=== PATIENT | female | born 1960 | race Caucasian/White ===

== ENCOUNTER 2021-10-30 14:28 | Outpatient (CLI) | payer BC, SELFPAY ==
--- OUTSIDE RECORDS SUMMARY | 2021-09-29 09:29 | XMS_ITS | Continuity of Care Document ---
:1960 Author Care Team Providers Name Role Phone PRESTON Panda Attending Physician MD Savi Maher Primary Care Physician Allergies, Adverse Reactions, Alerts Allergen Type Severity Reaction Last Updated Verified Status Dust Allergy Mild Congestion, May Yes Active cough, 2021 sneezing Lisinopril Allergy Mild rash May Yes Active 2021 Dust mites Allergy Mild Congestion, May Yes Active cough, 2021 sneezing Social History Smoking Status Status Start Date End Date Date of Observat ion Never smoked tobacco April 9:36am (finding) Observation Status Observation Response Date of Response History provided by Patient December 01, 2018 4: 02pm Where do you live? Own home/apt December 01, 2018 4: 02pm With whom do you live? Spouse December 01, 2018 4:02pm Specify additional service THERAPY WORKING WITH December 01, 2018 4:02pm needs PATIENT Additional Data Assigned Sex Female Problems Active Problems Medical Problem Onset Date Status Pain, joint, shoulder May 21, 2008 Active Hypertension August 08, 2012 Active Breast atypical hyperplasia October 25, 2009 Resolved Herpes zoster February 20, 2012 Resolved Hyperlipidemia December 23, 2013 Active Pre-diabetes Active FH: vasuclar disease Active Status post total knee Active replacement, left Hx of colonoscopy December 18, 2019 Active History of cholecystectomy Active Inactive/Resolved Problems Medical Problem Onset Date Status Encounter for screening Resolved laboratory testing for COVID-19 virus Annual physical exam Resolved Medications Medication Status Dose Units Route Directions Qty Days Start End Ins tructions Date Date Aspirin Active 81 MG PO Twice A Day November [facility] for deep vein clot prevention post surgery. Take , twice daily. 2018 4:48pm Atorvastatin Active 20 MG PO Bedtime August Calcium 2021 9:40am Fluticasone Active 2 SPRAY EACH Daily 08 November Propionate NOSTR , (Nasal) 2019 2:44pm Hctz/Losartan Active 1 TAB PO Daily January Potassium , (Losartan/Hct 2020 z) 100 1:16pm Mg/12.5 Mg TAB Levonorgestre Active 1 EACH IU Once 1 l (Mirena) 20 Mcg/24 Hr IUD Melatonin Active 10 MG PO Bedtime as 100 needed Metformin Hcl Active 1000 MG PO Daily August Take 2 (Metformin , tablets o nce Hcl Er) 500 2021 daily Mg TABCR 11:27am Acetaminophen Disconti 1 - 2 TAB PO Q4-6H Prn November ua /Hydrocodone nued , ry Bitart 2010, (Hydrocodone- 1:15pm 2011 Acetaminophen 3:06pm ) 5 Mg/500 Mg TAB Amlodipine Disconti 10 MG PO Daily August Besylate nued y , 2013 2:42pm 9:21am Amlodipine Disconti 10 MG PO Daily August Besylate nued , ry 2012, 1:56pm 2013 2:38pm Amlodipine Disconti 10 MG PO Daily August Besylate nued r , 2011 8:46am 1:56pm Amoxicillin Disconti 1000 MG PO Three Times August nued A Day 2009 11:57am 4:03pm Amoxicillin & Disconti 1 TABLET PO Twice Daily 19 August Au curry Pot nued For 7 Days , Clavulanate 2016 2016 (Augmentin) 12:07pm 8:10am 875 Mg/125 Mg TAB Aspirin Disconti 81 MG PO Daily November 9:01am Aspirin Disconti 1 TABLET PO Daily June 4:58pm Atorvastatin Disconti 20 MG PO Bedtime June Calcium nued 2021 2:21pm 9:40am Atorvastatin Disconti 20 MG PO Bedtime September Calcium nued 2020 1:39pm 2:21pm Atorvastatin Disconti 20 MG PO Bedtime June Calcium nued 2020 12:17pm 1:39pm Atorvastatin Disconti 20 MG PO Bedtime April Calcium nued , 2020 10:52am 12:17p m Atorvastatin Disconti 10 MG PO Bedtime 90 Novem Januar Calcium nued r , 2019, 9:53am 2020 10:52a m Atorvastatin Disconti 10 MG PO Bedtime 90 Sept Novemb Calcium nued er er 2019 9:43am 9:53am Azithromycin Disconti 250-5 MG PO Daily July 500 mg x 1 nued , , day then 250 2015 2015 mg daily x 4 11:16am 8:04am days Azithromycin Disconti 250 MG PO As Directed y 2 TABS ON DAY (Zithromax nu y , , , EN 1 Z-Alen) 250 Mg 2011 2011 TAB DA SHERON TAB 3:17pm 8:49am DAYS 2-5. Azithromycin Disconti 250 MG PO As Directed June 2 TABS ON DAY (Zithromax nued , , , THEN 1 Z-Alen) 250 Mg 2011 2011 TAB DA SHERON TAB 11:10am 8:49am DAYS 2-5. Azithromycin Disconti 0 PO Daily January T ABELARDO 500 MG (2 TABLETS) BY MOUTH TODAY, THEN 250 MG (1 TABLET) BY (Zithromax) nued MOUTH ON CE DAILY FOR 4 MORE DAYS. 250 Mg TAB 2010, 3:24pm 2011 3:06pm Azithromycin Disconti 0 PO Daily October TAKE 500 MG (2 TABLETS) BY MOUTH TODAY, THEN 250 MG (1 TABLET) BY (Zithromax) nued , MOUTH ON CE DAILY FOR 4 MORE DAYS. 250 Mg TAB 2009 2009 12:37pm 2:01pm Benzonatate Disconti 100 MG PO Three Times August t (Tessalon nued A Day as , ) 100 needed 2015 2016 Mg CAP 9:49am 8:08am Calcium/Vitam Disconti 1 EA PO Februa in D nued ry 2011 3:06pm Ceftriaxone Disconti 1 GM IM Once August Sodium nued , , (Rocephin) 2016 Gm INJ 12:05pm 12:21p m Celecoxib Disconti 200 MG PO Twice A Day Novemberobe nued 26, r 4th, 2018 2018 4:48pm 11:42a m Cephalexin Disconti 500 MG PO Three Times 26 November Septe m nued A Day 28, xochitl 2014 03, 3:39pm 2013 2:48pm Covid-19 Disconti 30 MCG IM Once July (Sars-Cov-2) nued , Mrna Vir 2021 2021 (Pfizer-Biont 12:37pm 4:25pm ech Covid-19) 30 Mcg/0.3 Ml INJ Covid-19 Disconti 30 MCG IM Once Decemb Dece (Sars-Cov-2) nued r , er Mrna Vir 2020, (Pfizer-Biont 1:39pm 2020 ech Covid-19) 1:44pm 30 Mcg/0.3 Ml INJ Diphtheria/Te Disconti 0.5 ML IM Once November tanus/Acell nued , 3rd, Pertussis 2014 2014 (Adacel) 0.5 8:17am 8:57am Ml INJ Eletriptan Disconti 20 MG PO As Needed Novemb Hydrobromide nued er (Relpax) 20 4th, Mg TAB 2008 4:09pm Fish Oil Disconti 1000 MG PO Daily Februa nued ry 2013 2:19pm Fluticasone Disconti 2 SPRAY EACH Daily November Propionate nued NOSTR 4th, er (Fluticasone 2015 09, Propionate 11:34am 2016 (Nasal)) 50 3:32pm Mcg/1 [place] INH Fluticasone Disconti 2 SPRAY EACH Daily November USE 2 SPRAYS Propionate nued NOSTR 16, 18th, IN EACH (Flonase) 50 2009 2010 NOSTRIL ONCE Mcg/1 [place] 3:15pm 2:02pm DAILY MISTI Fluticasone Disconti 2 SPRAY EACH Daily August USE 2 SPRAYS Propionate nued NOSTR , 16th, IN EACH (Flonase) 50 2009 2009 NOSTRIL ONCE Mcg/1 [place] 11:57am 3:15pm DAILY MISTI Fluticasone Disconti 2 SPRAY EACH Daily August USE 2 SPRAYS Propionate nued NOSTR y , , IN EACH (Flonase) 50 2008 2009 NOSTRIL ONCE Mcg/1 [place] 11:54am 2:52pm DAILY MISTI Fluticasone Disconti 2 SPRAY EACH Daily June Propionate nued NOSTR , , (Nasal) 2018 2019 3:10pm 2:44pm Fluticasone Disconti 2 SPRAY EACH Daily June Propionate nued NOSTR r , , (Nasal) 2016 2018 3:32pm 3:10pm Fluticasone Disconti 2 SPRAY EACH Daily November Propionate nued NOSTR r 17, , (Nasal) 2014 2015 (Flonase 5:03pm 11:34a Allergy m Relief) 50 Mcg/Act SPR Fluticasone Disconti 2 SPRAY EACH Daily January Propionate nued NOSTR , , (Nasal) 2014 2015 (Flonase 6:21pm 9:16am Allergy Relief) 50 Mcg/Act SPR Glucosamine-C Disconti 1 CAP PO Novemb hondroitin nued er (Joint 4th, Support) 2008 Cap CAP 4:09pm Guaifenesin-C Disconti 5 ML PO Every 4 August odeine nued Hours as 31, , (Cheratussin needed 2015 2015 Ac) 100 Mg/10 9:49am 8:08am Mg/5 Ml SOLN Hctz/Losartan Disconti 1 TAB PO Daily November Potassium nued , y (Losartan/Hct 2021 03, z) 50 Mg/12.5 12:39pm 2021 Mg TAB 8:50am Hctz/Losartan Disconti 1 TAB PO Daily November Potassium nued er , , (Losartan/Hct 2019 2020 z) 50 Mg/12.5 4:27pm 12:39p Mg TAB m Hydrochloroth Disconti 50 MG PO Daily August iazide nued y , , 2013 2013 2:42pm 9:21am Hydrochloroth Disconti 25 MG PO Daily August iazide nued , 2012, 1:56pm 2013 2:42pm Influenza Disconti 0.5 ML IM Once Januaryobe Virus Vac nued 29th, r Recomb Hem 2019, (Flublok 9:28am 2020 Quadrivalent 9:32am 2019 0.5 Ml) 1 Inj INJ Influenza Disconti 0.5 ML IM Once Januaryobe Virus Vacc nued 8th, r 8th, Triv Types 2009 2009 A&B (Fluarix 3:48pm 3:51pm ) 0.5 Ml INJ Influenza Disconti 0.5 ML IM Once 1 Februar Februa Virus Vacc nued y 4th, ry Triv Types 2008 4th, A&B (Fluarix) 11:36am 2008 0.5 Ml INJ 4:29pm Influenza Disconti 0.5 ML IM Once Januaryobe Virus Vaccine nued , r (Fluzone 2018 02, Quadrivalent 1:54pm 2017 (3 Yrs And 1:58pm Older)2017- ) 1 Inj INJ Influenza Disconti 0.5 ML IM Once Januaryobe Virus Vaccine nued 8th, r 8th, Split 2020 2020 (Fluzone 1:26pm 1:37pm Quadrivalent 2020 0.5 Ml) 1 Inj INJ Influenza Disconti 0.5 ML IM Once Januaryobe Virus Vaccine nued , r Split 2018, (Fluzone 6:04pm 2018 Quadrivalent 6:08pm 2018 0.5 Ml) 1 Inj INJ Influenza Disconti 0.5 ML IM Once Januaryobe Virus Vaccine nued th, r Split 2012, (Fluzone (3 9:04am 2012 Years And 9:20am Older) [id number]) 1 Ml INJ Influenza Disconti 0.5 ML IM Once Decem Virus Vaccine nued er xochitl Split , , (Fluzone Pf 2011 2011 [id number] 11:06am 11:11a (0.5 Ml)) 0.5 m Ml INJ Influenza Disconti 0.5 ML IM Once b Virus Vaccine nued r , er Types 2014 03, (Fluvirin 7:05pm 2013 2013- (4 7:06pm Yrs And Up, Pf-Syringe)) 1 Inj INJ Ketorolac Disconti 60 MG IM Once June Tromethamine nued 2013 2:56pm 2:58pm Levonorgestre Disconti 1 EA IU Once 1 Decem l (Mirena) 20 nued er xochitl Mcg/24 Hr IUD , 2015 9:03am 10:04a m Losartan Disconti 50 MG PO Daily Julyem Potassium nued , xochitl 2019 05, 11:31am 2019 4:27pm Losartan Disconti 50 MG PO Daily 90 July Potassium nued y , 2019 3:56pm 11:31a m Losartan Disconti 50 MG PO Daily 90 ua Potassium nued r 2nd, ry 2018, 10:06am 2019 3:56pm Losartan Disconti 50 MG PO Daily mb Potassium nued er er , 2018 2:34pm 10:06a m Losartan Disconti 50 MG PO Daily Potassium nued r 16th, xochitl 2017, 4:06pm 2018 2:34pm Losartan Disconti 50 MG PO Daily January Potassium nued 11th, er 2017, 9:59am 2017 4:06pm Losartan Disconti 50 MG PO Daily Novemberobe Potassium nued 7th, r 2018 02, 8:37am 2017 9:59am Metformin Hcl Disconti 1000 MG PO Daily 180 August T abelardo 2 (Metformin nued y , , tablets once Hcl Er) 500 2021 2021 daily Mg TABCR 12:23pm 11:27a m Metformin Hcl Disconti 1000 MG PO Daily 180 Take 2 (Metformin nued r , ry tablets once Hcl Er) 500 2020, daily Mg TABCR 11:51am 2021 12:23p m Metformin Hcl Disconti 1000 MG PO Daily 180 Apruar take 2 (Metformin nued er y tablets o nce Hcl Er) 500 , , daily Mg TABCR 2020 2021 12:01pm 8:50am Metformin Hcl Disconti 1000 MG PO Daily 180 Apruar Take 2 (Metformin nued r 6th, y tablets once Hcl Er) 500 2021 03, daily Mg TABCR 11:45am 2021 8:50am Metformin Hcl Disconti 1000 MG PO Daily Julyem ta ke 2 (Metformin nued , xochitl tablets o nce Hcl Er) 500 2020, daily Mg TABCR 12:51pm 2020 12:01p m Metformin Hcl Disconti 1000 MG PO Daily July t abelardo 2 (Metformin nued y , , tablets once Hcl Er) 500 2020 2020 daily Mg TABCR 2:34pm 12:51p m Metformin Hcl Disconti 1000 MG PO Daily Aprilua take 2 (Metformin nued , ry tablets o nce Hcl Er) 500 2020, daily Mg TABCR 10:52am 2020 2:34pm Metformin Hcl Disconti 500 MG PO Twice Daily January J libra nued With Meals 2019, 8:34am 2020 10:52a m Metformin Hcl Disconti 500 MG PO Twice Daily 180 O ctobe nued With Meals er , r 2019, 4:29pm 2019 8:34am Misoprostol Disconti 400 MCG OR Once 2 Ta ke 400 mcg (Cytotec) 200 nued er , xochitl by m jacque on Mcg TAB 2015, the evening 11:08am 2015 prior to 8:55am procedure. Multiple Disconti 1 EA PO August Vitamin nued 3rd, (Multi-Vitami 2012 n) TAB 1:40pm Multiple Disconti 1 EA PO August Vitamin nued 6th, (Multi-Vitami 2009 n) TAB 10:23a m Ondansetron Disconti 4 MG PO Every 6 June Hcl nued Hours , (Ondansetron 2013 2013 Odt) 4 Mg TAB 2:36pm 2:38pm Osteobiflex Disconti Daily Februa nued ry 2011 3:06pm Oxycodone Hcl Disconti 2.5-5 MG PO Every 4-6 40 Mar Take as needed for pain: 2.5 mg mild-moderate pain, 5 mg nued Hours as er er severe pain . needed 2018 9:35am 1:42pm Oxycodone Hcl Disconti 2.5-5 MG PO Every 4-6 November em Take as needed for pain: 2.5 mg mild-moderate pain, 5 mg nued Hours as severe pain . needed 2018, 4:48pm 2018 9:35am Potassium Disconti 10 MEQ PO Daily August Chloride nued y , 2013 9:57am 9:21am Progesterone Disconti 100 MG PO Daily July (Prometrium) nued , 100 Mg CAP 2010 2010 2:51pm 7:33am Psyllium Disconti 2.6 GM PO Daily as Septem TAKE S 5 (Metamucil) nued needed xochitl CAPSULE S 0.52 Gm CAP 2013 2:11pm Senna/Docusat Disconti 1 TAB PO Twice A Day 60 Septemb O ctobe Hold if e Sodium nued as needed er 6th, r 4th, expe riencing (Senna S) 8.6 2018 2018 loose stools Mg/50 Mg TAB 9:27am 11:42a m Senna/Docusat Disconti 1 TAB PO Twice A Day November Se ptem Hold if e Sodium nued , xochitl experiencin g (Senna S) 8.6 2018 09, loose stools Mg/50 Mg TAB 4:48pm 2018 9:27am Specialty Disconti 1 EA PO Decemb Vitamins nued er Products , (Centrum 2012 Performance) 8:11am TAB Triamcinolone Disconti 1 FCO TOP Twice A Day July ust Acetonide nued , (Triamcinolon 2014 2014 e Acetonide 11:16am 8:04am (Cream)) 0.1 % CRE Valacyclovir Disconti 1000 MG PO Three Times cemb Hcl (Valtrex) nued A Day r , er 1,000 Mg TAB 2012 02, 9:55am 2011 8:11am Valsartan Disconti 320 MG PO Daily November (Diovan) 320 nued , , Mg TAB 2016 2017 8:30am 9:03am Valsartan Disconti 320 MG PO Daily October (Diovan) 320 nued , 30, Mg TAB 2016 2016 10:16am 8:30am Valsartan Disconti 320 MG PO Daily November (Diovan) 320 nued , , Mg TAB 2015 2016 8:29am 10:16a m Valsartan Disconti 320 MG PO Daily 30 [place]athy [place] Pt due for (Diovan) 320 nued 17th, 9th, medicat ion Mg TAB 2015 2015 follow up in 7:52am 8:29am [place] Valsartan Disconti 320 MG PO Daily July (Diovan) 320 nued , 17, Mg TAB 2015 2015 10:55am 7:52am Valsartan Disconti 320 MG PO Daily July (Diovan) 320 nued r , , Mg TAB 2014 2015 10:43am 10:55a m Valsartan Disconti 320 MG PO Daily October (Diovan) 320 nued 6th, er Mg TAB 2014 11, 7:59am 2014 10:43a m Valsartan Disconti 320 MG PO Daily October (Diovan) 320 nued y , 6th, Mg TAB 2014 2014 4:38pm 7:59am Valsartan Disconti 320 MG PO Daily August (Diovan) 320 nued , ry Mg TAB 2013, 9:21am 2014 4:38pm Valsartan Disconti 320 MG PO Daily August Pleas e fill (Diovan) 320 nued r th, 3rd, gener ic Mg TAB 2011 2012 4:57pm 1:40pm Valsartan Disconti 320 MG PO Daily September (Diovan) 320 nued 26th, er Mg TAB 2011, 4:25pm 2011 4:57pm Valsartan Disconti 320 MG PO Daily October (Diovan) 320 nued , th, Mg TAB 2010 2011 1:13pm 4:25pm Valsartan Disconti 320 MG PO Daily August (Diovan) 320 nued 6th, 1st, Mg TAB 2009 2010 10:41am 1:13pm Valsartan-Hyd Disconti 1 TAB PO Daily June rochlorothiaz nued , 6th, jamal (Lisette 2008 2009 Hct) 320 9:21am 10:41a Mg/25 Mg TAB m Valsartan-Hyd Disconti 1 TAB PO Daily 05 July rochlorothiaz nued , jamal (Lisette 2008 Hct) 320 9:21am Mg/25 Mg TAB Zoster Disconti 50 MCG IM Once 1 [facility] Vaccine nued r , er Recombinant 2019 , Adj 1:40pm 2018 (Shingrix) 50 3:07pm Mcg/0.5 Ml INJ Zoster Disconti 50 MCG IM Once 1 November Vaccine nued , 6th, Recombinant 2018 2018 Adj 2:54pm 3:37pm (Shingrix) 50 Mcg/0.5 Ml INJ Immunizations Immunization Event Date Not Given Dose Touch Up Painter Hand Lot Vac cine Reason Number Number Informatio n Statement (VIS) Deta il COVID-19 Pfizer June 21, 1 PFIZER-BIONTECH [id number] 2020 COVID-19 Pfizer July 12, 2 PFIZER-BIONTECH [id number] 2020 COVID-19 Pfizer March 10 PFIZER-BIO [id number] 2020 COVID-19 Pfizer July 18, PFIZER-BIO [id number] 2021 Hepatitis A April 08 Adult 2007 Influenza January 13, Glaxosmithkline [id number] 2009 A Influenza December 10 Sanofi Pasteur [id number] 2011 A Influenza January 10 Sanofi [id number] 2012 A Influenza February 11 Novartis [id number] 2013 A Influenza January 9 SANOFI [id number] 2017 A Influenza January 15 SANOFI [id number] 2018 A Influenza January 11 SANOFI [id number] 2019 A Influenza May 09 [id number] 2008 A Influenza January 3 [id number] 2010 A Influenza January 11, [id number] 2015 A Influenza January 13 [id number] 2016 A Influenza January 13, 12 SANOFI [id number] 2020 A Influenza January 1 Flublock 2019 Shingrix November 11, 1 GSK CONSUM [id number] 2018 Shingrix March 2 GLAXOSMITH [id number] 2018 Tetanus/Dipther August 18, 2 ia 2009 Tetanus/Dipther April 10, 1 ia 2006 Tdap September 20, 1 (adolescent/gold 2006 lt) Tdap November 08, 2 SANOFI (adolescent/gold 2014 lt) Medical Equipment Device Date Implanted Device Details Simplex December 01, 2018 WALTER: [id number] Issuing Agency: [facility] Device Id: [id number] Lot Number: [id number] ATTUNE December 01, 2018 WALTER: [id number] Issuing Agency: [employer] Device Id: [id number] Expiration Date: 10-09-29 Lot Number: [id number] ATTUNE December 01, 2018 WALTER: [id number] Issuing Agency: [employer] Device Id: [id number] Expiration Date: 11-15-30 Lot Number: [id number] ATTUNE December 01, 2018 WALTER: [id number] Issuing Agency: [employer] Device Id: [id number] Expiration Date: 07-11-30 Lot Number: [id number] ATTUNE December 01, 2018 WALTER: [id number] Issuing Agency: [employer] Device Id: [id number] Expiration Date: 07-11-30 Lot Number: [id number] Advance Directives Advance Directive Response Recorded Date/Time Does Pt have Health Care No March 16 015 1:08pm Directive? Has patient completed a Yes April 19 9:36am Health Care Directive? Insurance Providers Guarantor Oj Hinkle Address [address] [facility] [address] Contact Info. Home Phone: Payer Policy Id Coverage Id Subscriber's Subscriber Id Effective E xpiration Name Date Date Blue [id number] Oj Hinkle 2013 [id number] Plan of Treatment Future Tests Future scheduled test information is unavailable Pending Tests Pending diagnostic test information is unavailable Future Visits Future appointment information is unavailable Referrals to Other Providers Reason for Referral Start Provider Provider Contact Provider Address Referral Date Information Win Lopez MD Work Phone: [facility] [address] [facility] [address] [phone] Needs after work HANNY SANTIAGO Jose M MD Work Phone: [facility] [address] [facility] [address] [phone] Needs after work HANNY SANTIAGO Future Procedures Procedure Name Scheduled Date TARIQ Bilat Mammo Scrn TARIQ Bilat Mammo Scrn Future Medications Future medication information is unavailable Patient Instructions Aspirin (By mouth) Laxative, Stimulant (By mouth) Oxycodone, Rapid Release (By mouth) Celecoxib (By mouth) Knee Replacement (DC)
--- NOTE | 2021-10-30 15:00 | CRLHL7_ITS ---
For Patients: As a result of the Cures Act, medical imaging exams and procedure reports are released immediately into your electronic medical record. You may view this report before your referring provider. If you have questions, please contact your health care provider. BILATERAL MAMMOGRAM WITH COMPUTER-AIDED DETECTION AND TOMOSYNTHESIS TECHNIQUE: CC and MLO views were obtained. These mammographic images have been obtained using full-field digital technique. These mammographic images were interpreted with the benefit of computer-aided detection. Breast Tomosynthesis was used in this interpretation. COMPARISON FILM: 05/27/20, 03/28/19, 01/16/18. FINDINGS: The breasts are heterogeneously dense, which may obscure small masses IMPRESSION: There is no radiographic evidence for malignancy. ASSESSMENT: BI-RADS Category 1: Negative RECOMMENDATION: Routine screening mammogram in 1 year. A lay language report of this examination will be provided to the patient. Jona Winston M.D. Diagnostic/Musculoskeletal Radiologist [email or web address] / be/Dictated by: Jona Winston MD @ 10/31/2021 8:34:00 AM (Electronically Signed)
== END 2021-10-30 14:29 | disposition home or self-care (01) ==
LOC: MAMMO 14:29
PROVIDERS: Visit Provider Surgery
DX: Z12.31 Encounter for screening mammogram for malignant neoplasm of breast (principal); R92.2 Inconclusive mammogram
CPT/HCPCS: 77063; 77067

== ENCOUNTER 2022-03-13 10:32 | Outpatient (CLI) | payer BC, SELFPAY ==
[2022-03-13 14:17] LABS: Albumin* 4.7 g/dL (3.3-5.0)
[2022-03-13 14:18] LABS: Chloride* 103 mmol/L (96-114); Potassium* 4.3 mmol/L (3.6-5.1); Sodium* 140 mmol/L (135-149)
[2022-03-13 14:20] LABS: Cholesterol* 172 mg/dL (90-199)
[2022-03-13 14:21] LABS: Alanine Aminotransferase* 19 U/L (4-35); Alkaline Phosphatase* 81 U/L (40-150); Aspartate Amino Transferase* 18 U/L (12-35); Bilirubin Total* 1.1 mg/dL (0.1-1.5); Blood Urea Nitrogen* 17 mg/dL (7-30); Calcium* 9.3 mg/dL (8.4-10.6); Carbon Dioxide* 30 mmol/L (20-32); Creatinine* 0.6 mg/dL (0.5-1.5); Estimated Glomerular Filt Rate 101 ml/min; Glucose* 118 mg/dL (60-115); HDL Cholesterol* 77 mg/dL (>=50); LDL Cholesterol Calculated 56 mg/dL (<100); Total Protein* 7.5 g/dL (6.0-8.3); Triglycerides* 194 mg/dL (40-149)
== END 2022-03-13 10:33 | disposition home or self-care (01) ==
PROVIDERS: PCP Physician Assistant Medical; Visit Provider Physician Assistant Medical
DX: Z00.00 Encounter for general adult medical examination without abnormal findings (principal); I10 Essential (primary) hypertension; E78.5 Hyperlipidemia, unspecified; R73.03 Prediabetes
CPT/HCPCS: 80053; 80061; 84443

== ENCOUNTER 2022-06-11 14:19 | Outpatient (CLI) | payer BC, SELFPAY ==
--- NOTE | 2022-06-11 14:30 | CRLHL7_ITS ---
For Patients: As a result of the Century Cures Act, medical imaging exams and procedure reports are released immediately into your electronic medical record. You may view this report before your referring provider. If you have questions, please contact your health care provider. BILATERAL BREAST MRI WITHOUT AND WITH GADOLINIUM, 06/11/2022 CLINICAL HISTORY: The patient has a history of LEFT breast biopsy showing atypical lobular hyperplasia, undergoing surgical excision in 2007. INDICATION FOR BREAST MRI: Screening breast MRI in this high-risk woman. COMPARISON STUDIES: Mammogram 10/30/2021. Breast MRI 05/12/2021. CONTRAST: 20 mL Dotarem. TECHNIQUE: The patient was positioned prone using a breast coil. Multiple imaging sequences were obtained using 1-1.5 mm thick slices with no gap. The image sequences include T2-weighted STIR in the axial plane, T1-weighted nonfat-saturated gradient echo in the axial plane, pre- and post-contrast T1-weighted FLASH 3D with fat suppression in the axial plane, and T1-weighted FLASH high-resolution 3D with fat suppression in the sagittal plane. Image post-processing was performed on a [employer] workstation. Complex 3D rendering including maximum intensity projections (MIPS) and volumetric renderings were obtained to optimize visualization of the extent of pathology and relationship to the nipple, skin, and chest wall. This aids in determining feasibility of breast conservation surgery. Subtraction, multiplanar reconstruction, mean curve determination, and angiogenesis mapping were also performed. The study was technically adequate. FINDINGS: Amount of Fibroglandular Tissue: Scattered fibroglandular tissue. Breast Background Enhancement: Minimal (<25%). RIGHT and LEFT Breast: There is no suspicious mass or mass enhancement in either breast. Lymph Nodes: There is no abnormal morphology, axillary lymph nodes or internal mammary lymph nodes. IMPRESSIONS AND RECOMMENDATIONS: No MRI findings for malignancy in either breast. Recommend that the patient continue with yearly screening mammography. If screening MRIs are felt to be clinically indicated, recommend that these be offset at six-month intervals with the screening mammogram. BI-RADS: BI-RADS Category 2: Benign Poppy Jackson M.D. Diagnostic/Breast Radiologist [email or web address] KERI/[email or web address] PT/Dictated by: Poppy Jackson MD @ 06/12/2022 8:48:00 AM (Electronically Signed)
== END 2022-06-11 14:20 | disposition home or self-care (01) ==
PROVIDERS: PCP Physician Assistant Medical; Visit Provider Surgery
DX: N60.99 Unspecified benign mammary dysplasia of unspecified breast (principal); Z12.39 Encounter for other screening for malignant neoplasm of breast
CPT/HCPCS: 77049; A9575

== ENCOUNTER 2022-10-01 07:30 | Outpatient (RCR) | payer BC, SELFPAY | END 2022-10-01 12:46 | disposition home or self-care (01) | PROVIDERS: PCP Physician Assistant Medical; Visit Provider Orthopaedic Surgery Sports Medicine | DX: M75.02 Adhesive capsulitis of left shoulder (principal); M25.512 Pain in left shoulder; M25.612 Stiffness of left shoulder, not elsewhere classified; Z51.89 Encounter for other specified aftercare | CPT/HCPCS: 97110; 97140; 97161 ==

== ENCOUNTER 2022-12-31 17:14 | Outpatient (CLI) | payer BC, SELFPAY ==
[2022-12-31 22:26] LABS: Chloride* 101 mmol/L (96-114); Potassium* 4.1 mmol/L (3.6-5.1); Sodium* 138 mmol/L (135-149)
[2022-12-31 22:29] LABS: Alanine Aminotransferase* 23 U/L (4-35); Anion Gap 11 mEq/L (7-15); Blood Urea Nitrogen* 20 mg/dL (7-30); Calcium* 9.8 mg/dL (8.4-10.6); Carbon Dioxide* 26 mmol/L (20-32); Cholesterol* 159 mg/dL (90-199); Creatinine* 0.6 mg/dL (0.5-1.5); Estimated Glomerular Filt Rate 101 ml/min; HDL Cholesterol* 69 mg/dL (>=50); LDL Cholesterol Calculated 40 mg/dL (<100); Triglycerides* 251 mg/dL (40-149)
[2022-12-31 23:33] LABS: Glucose* 126 mg/dL (60-115)
== END 2022-12-31 17:15 | disposition home or self-care (01) ==
PROVIDERS: PCP Physician Assistant Medical; Visit Provider Family Medicine
DX: E78.5 Hyperlipidemia, unspecified (principal); I10 Essential (primary) hypertension; R73.03 Prediabetes
CPT/HCPCS: 80048; 80061; 84460

== ENCOUNTER 2023-02-26 17:06 | Outpatient (CLI) | payer BC, SELFPAY ==
--- NOTE | 2023-02-26 17:40 | CRLHL7_ITS ---
For Patients: As a result of the Cures Act, medical imaging exams and procedure reports are released immediately into your electronic medical record. You may view this report before your referring provider. If you have questions, please contact your health care provider. BILATERAL DIGITAL SCREENING MAMMOGRAM WITH TOMOSYNTHESIS AND COMPUTER-AIDED DETECTION, 02/26/2023 CLINICAL HISTORY: Routine screening exam. COMPARISON: 10/30/2021, 05/27/2020, 03/28/2019, 01/16/2018. TECHNIQUE: Digital mammogram in CC and MLO projections including computer-aided detection (CAD). Tomosynthesis utilized. BREAST COMPOSITION: There are areas of scattered fibroglandular density. FINDINGS: RIGHT Breast: Focal asymmetric density may be present within the lateral RIGHT breast 9 cm from the nipple. LEFT Breast: No suspicious findings. IMPRESSION: RIGHT breast asymmetry/mass. RECOMMENDATIONS: Additional mammographic views of the RIGHT breast including 3D spot compression CC/MLO. RIGHT breast ultrasound may also be required. BI-RADS Category 0: Incomplete: Need Additional Imaging Evaluation and/or Prior Mammograms for Comparison The [facility] will contact the patient for follow-up. A lay language report of this examination will be provided to the patient. Dictated by Vu Xiong MD @ 02/27/2023 1:10:56 PM estradaj/Dictated by: Vu Xiong MD @ 02/27/2023 1:10:00 PM (Electronically Signed)
== END 2023-02-26 17:07 | disposition home or self-care (01) ==
PROVIDERS: PCP Family Medicine; Visit Provider Family Medicine
DX: Z12.31 Encounter for screening mammogram for malignant neoplasm of breast (principal); N63.10 Unspecified lump in the right breast, unspecified quadrant
CPT/HCPCS: 77063; 77067

== ENCOUNTER 2023-03-12 08:31 | Outpatient (CLI) | payer BC, SELFPAY ==
--- NOTE | 2023-03-12 08:45 | CRLHL7_ITS ---
For Patients: As a result of the Cures Act, medical imaging exams and procedure reports are released immediately into your electronic medical record. You may view this report before your referring provider. If you have questions, please contact your health care provider. DIGITAL DIAGNOSTIC RIGHT MAMMOGRAM USING TOMOSYNTHESIS AND COMPUTER-AIDED DETECTION RIGHT BREAST ULTRASOUND CLINICAL HISTORY: RIGHT breast mass/asymmetry. COMPARISON: 02/26/2023, 10/30/2021, 05/27/2020, 03/28/2019. TECHNIQUE: Digital RIGHT mammogram in two projections. Tomosynthesis and CAD utilized. Real-time ultrasound imaging of RIGHT breast with imaging documentation. BREAST COMPOSITION: The breast is heterogeneously dense, which may obscure small masses. FINDINGS: 3D spot compression cc/MLO RIGHT breast mammogram images submitted. Decreased conspicuity of previously noted asymmetric density. No architectural distortion or suspicious calcifications. Targeted RIGHT breast ultrasound performed. At 8 o`clock 8 cm from the nipple, a small cyst is present measuring 5 x 1 x 3 millimeters. An additional cyst is present at 9 o`clock 6 cm from the nipple measuring 3 x 4 x 7 millimeters. No suspicious findings. IMPRESSION: Benign fibrocystic changes. No evidence of malignancy. RECOMMENDATIONS: Annual BILATERAL screening mammography. Results and recommendations discussed with the patient. BI-RADS Category 2: Benign A lay language report of this examination will be provided to the patient. Dictated by Vu Xiong MD @ 03/12/2023 10:32:26 AM jj/Dictated by: Vu Xiong MD @ 03/12/2023 10:32:00 AM (Electronically Signed)
--- NOTE | 2023-03-12 09:15 | CRLHL7_ITS ---
For Patients: As a result of the Cures Act, medical imaging exams and procedure reports are released immediately into your electronic medical record. You may view this report before your referring provider. If you have questions, please contact your health care provider. PLEASE SEE THE DIGITAL DIAGNOSTIC RIGHT MAMMOGRAM PERFORMED SAME DAY CRL:jay thompson/Dictated by: Vu Xiong MD @ 03/12/2023 10:29:00 AM (Electronically Signed)
== END 2023-03-12 08:32 | disposition home or self-care (01) ==
LOC: MAMMO 08:32
PROVIDERS: PCP Family Medicine; Visit Provider Family Medicine
DX: N63.10 Unspecified lump in the right breast, unspecified quadrant (principal); R92.8 Other abnormal and inconclusive findings on diagnostic imaging of breast; N60.01 Solitary cyst of right breast
CPT/HCPCS: 76642; 77065; G0279

== ENCOUNTER 2023-08-26 08:57 | Outpatient (CLI) | payer BC, SELFPAY ==
--- NOTE | 2023-08-26 09:15 | MR_ITS ---
Patient: OJ ANTOINE Facility:?[facility] R[facility] Patient ID:?[id number] Site Patient ID:?[id number]. Site :?[id number] Study:?MRI-Breast WO/W DOTAREM 20ML-08/26/2023 4:11:55 PM Ordering Physician:JEN Final Report: BILATERAL BREAST MRI WITHOUT AND WITH GADOLINIUM CLINICAL HISTORY: Elevated risk of breast carcinoma related to prior left breast surgical excisional biopsy showing atypical lobular hyperplasia in 2007. INDICATION FOR BREAST MRI: Screening breast MRI in this high risk woman. COMPARISON STUDIES: MRI: 06/11/2022, 05/12/2021 Mammogram 03/12/2023, 02/26/2023, 05/27/2020 CONTRAST: 20 cc Dotarem TECHNIQUE: The patient was positioned prone using a breast coil. Multiple imaging sequences were obtained using 1-1.5 mm thick slices with no gap. The image sequences include T2-weighted STIR in the axial plane, T1-weighted nonfat-saturated gradient echo in the axial plane, pre- and post-contrast T1-weighted FLASH 3D with fat suppression in the axial plane, and T1-weighted FLASH high resolution 3D with fat suppression in the sagittal plane. Image post-processing was performed on a [employer] workstation. Complex 3D rendering including maximum intensity projections (MIPS) and volumetric renderings were obtained to optimize visualization of the extent of pathology and relationship to the nipple, skin, and chest wall. This aids in determining feasibility of breast conservation surgery. Subtraction, multiplanar reconstruction, mean curve determination, and angiogenesis mapping were also performed. The study was technically adequate. FINDINGS: Amount of Fibroglandular Tissue: Scattered fibroglandular tissue Breast Background Enhancement: Minimal RIGHT Breast: No suspicious mass or non-mass enhancement. LEFT Breast: No suspicious mass or non-mass enhancement. Lymph Nodes: No axillary or internal mammary chain lymphadenopathy. IMPRESSIONS AND RECOMMENDATIONS: 1. No MRI evidence of malignancy in either breast. 2. Annual screening mammography is recommended. If clinically indicated, continued screening breast MRI may also be performed, staggered at six-month intervals with screening mammography. BI-RADS Category 1: Negative Dictated by Dedra Anderson MD @ 08/28/2023 8:35:55 AM Signed by:?Dedra Anderson MD @08/28/2023 9:25:11 AM (Electronic Signature)
== END 2023-08-26 08:58 | disposition home or self-care (01) ==
LOC: MRI 08:58
PROVIDERS: PCP Family Medicine; Visit Provider Surgery
DX: N60.92 Unspecified benign mammary dysplasia of left breast (principal); Z12.39 Encounter for other screening for malignant neoplasm of breast
CPT/HCPCS: 77049; A9575

== ENCOUNTER 2023-10-23 09:14 | Emergency (ER) | payer BC, SELFPAY ==
[2023-10-23 09:48] VITALS: BP 170/89; PULSE 66; RESP 20; TEMP 36.3; O2SAT 95; BMI 35.6
--- NOTE | 2023-10-23 11:38 | ED_ITS ---
HPI - Dizziness General Chief Complaint: Dizziness/Vertigo Stated Complaint: Dizzy, high bp sent from Time Seen by Provider: 10/23/23 10:50 History of Present Illness HPI Narrative: This 63-year-old female comes in reporting some vertigo symptoms that began yesterday. She states that she feels normal if remaining still. She has had vertigo that was triggered with movement of her head side to side in the past. This is different in that she feels off balance when bending forward and then straightening up. She states that her symptoms are absent when remaining still. She does not report any nausea or vomiting. She does not have any report of weakness and is able to ambulate and speak normally. Related Data Home Medications ?Medication ?Instructions ?Recorded ?Confirmed melatonin 5 mg capsule 10 mg PO .Bedtime as needed PRN 03/19/22 10/23/23 aspirin 81 mg tablet,delayed 81 mg PO QDAY 08/14/22 10/23/23 release magnesium 250 mg tablet 250 mg PO QDAY 12/31/22 10/23/23 famotidine PO 10/23/23 10/23/23 Previous Rx's ?Medication ?Instructions ?Recorded atorvastatin 20 mg tablet 20 mg PO QHS #90 tabs 01/01/23 losartan 100 1 tab PO QDAY #90 tabs 01/01/23 mg-hydrochlorothiazide 12.5 mg tablet metformin 500 mg tablet,extended 1,000 mg (2 x 500 mg) PO QDAY #180 01/01/23 release 24hr (osmotic) tabs meclizine 25 mg tablet 25 mg PO QID #20 tabs 10/23/23 Allergies Allergy/AdvReac Type Severity Reaction Status Date / Time lisinopril Allergy Mild Rash Verified 10/23/23 08:56 mold Allergy Unknown Congested Verified 10/23/23 08:56 house dust mite Allergy congestion, Verified 10/23/23 08:56 cough, sneezing Review of Systems Status of ROS: Reports: 10 or more systems reviewed and unremarkable except as noted in History and below Narrative: Constitutional: No fevers, no weight gain or loss. Eyes: No discharge. No vision changes. HENT: No congestion, no sore throat, no ear pain. Cardiovascular: No chest pain, no palpitations. Respiratory: No shortness of breath, no wheezes, no cough. Gastrointestinal: No abdominal pain, no vomiting, no diarrhea. Genitourinary: No dysuria, no hematuria. Musculoskeletal: Normal range of motion. Skin: No rashes, no pruritis. Neurological: No weakness, sensory change, speech change. Vertigo symptoms when bending forward as described above. Endo/Heme/Allergies: No bruising or bleeding. No polydipsia. Pysch: no suicidality, no anxiety, no insomnia. All other systems reviewed and are negative. [facility] Medical History (Updated 10/23/23 @ 11:42 by Aleksey Hansen MD) Type 2 diabetes mellitus, without long-term current use of insulin ?E11.9 - Type 2 diabetes mellitus without complications (ICD-10) Mixed hyperlipidemia ?E78.2 - Mixed hyperlipidemia (ICD-10) Primary hypertension ?I10 - Essential (primary) hypertension (ICD-10) Closed fracture of phalanx of fifth toe ?S92.503A - Displaced unspecified fracture of unspecified lesser toe(s), initial encounter for closed fracture (ICD-10) Former smoker ?Z87.891 - Personal history of nicotine dependence (ICD-10) Herpes zoster (02/20/12) ?B02.9 - Zoster without complications (ICD-10) Atypical hyperplasia of breast (10/25/09) ?N60.99 - Unspecified benign mammary dysplasia of unspecified breast (ICD-10) Surgical History (Updated 08/13/22 @ 07:43 by Mary Vásquez ~ [facility]) S/P left knee arthroscopy (10/30/10) ?Z98.890 - Other specified postprocedural states (ICD-10) History of ?Z98.891 - History of uterine scar from previous surgery (ICD-10) History of breast biopsy ?Z98.890 - Other specified postprocedural states (ICD-10) History of tubal ligation ?Z98.51 - Tubal ligation status (ICD-10) Status post total left knee replacement (12/01/18) ?Z96.652 - Presence of left artificial knee joint (ICD-10) History of colonoscopy (12/18/19) ?Z98.890 - Other specified postprocedural states (ICD-10) History of cholecystectomy (06/26/13) ?Z90.49 - Acquired absence of other specified parts of digestive tract (ICD- 10) Family History (Updated 03/19/22 @ 13:11 by Josefina Panda PA-C) Father FH: CABG (coronary artery bypass surgery) Myocardial infarction, Onset Age: 65 Mother High blood pressure Diabetes Paternal Grandfather Colon cancer Paternal Grandmother Thyroid disease Brother Thyroid disease Social History (Updated 01/07/23 @ 02:45 by Vu Lynn MD) 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: , 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, 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, 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, 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 What is your current living situation?: I presently have a place to live Problems where you live: no known problems In the past 12 months, utilities in danger of being shut off: no In past 12 months, lack of transportation kept you from medical appts, meetings, work, or getting things needed for daily living: no In the past 12 mos, have been you worried that your food would run out before you had money to buy more?: never true In the past 12 mos, the food you bought just didn't last and you didn't have money to buy more?: never true Smoking Status: Former smoker How often does anyone, including family, friends and others, physically hurt you : never How often does anyone, including family, friends and others, insult or talk down to you: never How often does anyone, including family, friends and others, threaten you with harm: never How often does anyone, including family, friends and others, scream or curse at you: never Little interest or pleasure in doing things: not at all Feeling down, depressed, or hopeless: not at all Exam Narrative: Exam Narrative: Constitutional: Well-developed, well-nourished, no acute distress. HEENT: Normocephalic, atraumatic. Neck: Normal range of motion. Nontender. Supple. Heart: Regular. No murmurs. Normal rate. Intact distal pulses. Lungs: Clear to auscultation. No chest discomfort. No wheezes, rhonchi, or rales. Abdomen: Normal bowel sounds. Nontender. No rebound tenderness. Genitalia: Deferred. Back: No midline tenderness. Normal range of motion. Extremities: Normal range of motion. No injury. Skin: Intact. No rash. Warm. No erythema or pallor. Neurologic: No altered sensation. No weakness. Alert and oriented. No nystagmus. No facial asymmetry. Tongue is midline. Wflkyr-eo-piop is normal. No pronator drift. Circle Shear Operator strength is equal bilaterally. Able to raise each leg from the bed. Psychiatric: No suicidality. No anxiety or depression. No insomnia. Nursing notes and vitals signs are reviewed. Const: Vital Signs, click to edit/add: Vital Signs - 24 hr 10/23/23 09:48 Temperature 97.3 F L Pulse Rate [Pulse Oximeter] 66 Respiratory Rate 20 Blood Pressure [Ri ght Upper Arm] 170/89 H Pulse Oximetry 95 Oxygen Delivery Me thod Room Air Course Vital Signs Vital signs: Initial Vital Signs Temperature 97.3 F L 10/23/23 09:48 Temperature Source Temporal Artery Scan 10/23/23 09:48 Pulse Rate 66 10/23/23 09:48 Pulse Rhythm Regular 10/23/23 09:48 Respiratory Rate 20 10/23/23 09:48 Blood Pressure 170/89 H 10/23/23 09:48 Blood Pressure Mean 116 H 10/23/23 09:48 Blood Pressure Position Sitting 10/23/23 09:48 Pulse Oximetry 95 10/23/23 09:48 Oxygen Delivery Method Room Air 10/23/23 09:48 Vital Signs Temperature 97.3 F L 10/23/23 09:48 Pulse Rate 66 10/23/23 09:48 Respiratory Rate 20 10/23/23 09:48 Blood Pressure 170/89 H 10/23/23 09:48 Pulse Oximetry 95 10/23/23 09:48 Oxygen Delivery Method Room Air 10/23/23 09:48 Temperature 97.3 F L 10/23/23 09:48 Pulse Rate 66 10/23/23 09:48 Respiratory Rate 20 10/23/23 09:48 Blood Pressure 170/89 H 10/23/23 09:48 Pulse Oximetry 95 10/23/23 09:48 Oxygen Delivery Method Room Air 10/23/23 09:48 MDM - Dizziness MDM Narrative Medical decision making narrative: This patient comes in with vertigo symptoms that are triggered when bending forward and straightening up again. Aside from that she does not have any other symptoms. She is not showing finding suspicious of a central process. Her neurologic exam is completely normal. She does have a prior history of what sounds like benign positional vertigo. She is aware of canalith repositioning maneuvers. This does seem like a different expression of the same condition with a vertical orientation currently. I did discuss lab and imaging options with the patient and her and these were declined in a process of shared decision making. The patient did receive a tablet of meclizine and a prescription for the same. I stated signs and symptoms that would indicate a need for return and re-evaluation. Discharge Plan Discharge Clinical Impression: Benign paroxysmal positional vertigo Patient Disposition: Home, Self-Care Condition: Stable Additional Instructions: Take medication as prescribed and needed. Increase activity as tolerated. Follow up with MD return if symptoms are persistent or worsening. Prescriptions: New meclizine 25 mg tablet 25 mg PO QID Qty: 20 0RF No Action aspirin 81 mg tablet,delayed release (DR/EC) 81 mg PO QDAY melatonin 5 mg capsule 10 mg PO .Bedtime as needed PRN Hold Instructions: ? magnesium 250 mg tablet 250 mg PO QDAY atorvastatin 20 mg tablet 20 mg PO QHS Qty: 90 3RF metformin 500 mg tablet extended release 24hr 1,000 mg PO QDAY Qty: 180 3RF losartan-hydrochlorothiazide 100-12.5 mg tablet 1 tab PO QDAY Qty: 90 3RF famotidine [Pepcid] PO Follow Up/Referrals: Vu Lynn MD [Primary Care Provider] - Stand Alone Forms: [employer] Info Instructions
[2023-10-23] MEDS: MECLIZINE HCL 25 MG TABLET PO (11:58)
[2023-10-23 12:16] VITALS: BP 164/87; PULSE 72; RESP 18
== END 2023-10-23 12:16 | disposition home or self-care (01) ==
LOC: ED 11:45
PROVIDERS: Emergency Provider Emergency Medicine Emergency Medical Services; PCP Family Medicine
DX: H81.13 Benign paroxysmal vertigo, bilateral (principal)
CPT/HCPCS: 99283; 99284; A9270

== ENCOUNTER 2024-01-07 09:07 | Outpatient (CLI) | payer BC, SELFPAY | END 2024-01-07 09:08 | disposition home or self-care (01) | PROVIDERS: PCP Family Medicine; Visit Provider Family Medicine | DX: E11.9 Type 2 diabetes mellitus without complications (principal); E78.2 Mixed hyperlipidemia; I10 Essential (primary) hypertension | CPT/HCPCS: 80048; 80061; 84460 ==

== ENCOUNTER 2024-03-25 07:31 | Outpatient (CLI) | payer BC, SELFPAY ==
--- NOTE | 2024-03-25 07:45 | CRLHL7_ITS ---
For Patients: As a result of the Cures Act, medical imaging exams and procedure reports are released immediately into your electronic medical record. You may view this report before your referring provider. If you have questions, please contact your health care provider. DIGITAL DIAGNOSTIC BILATERAL MAMMOGRAM USING TOMOSYNTHESIS AND COMPUTER-AIDED DETECTION CLINICAL HISTORY: RIGHT breast pain. COMPARISON: MRI 08/26/2023, mammogram and ultrasound 03/12/2023, mammogram 02/26/2023. TECHNIQUE: Digital BILATERAL mammogram in four projections with computer-aided detection. Tomosynthesis was used in this interpretation. BREAST COMPOSITION: There are scattered areas of fibroglandular density. FINDINGS: Normal fibroglandular tissue is present bilaterally. No suspicious masses or architectural distortion. No suspicious calcifications or adenopathy. IMPRESSION: No suspicious findings. No evidence of malignancy. RECOMMENDATIONS: Continue high-risk screening including breast MRI in 6 months and screening mammogram in 1 year. A lay language report of this examination will be provided to the patient. BI-RADS Category 2: Benign Dictated by Vu Xiong MD @ 03/25/2024 9:38:46 AM jj/Dictated by: Vu Xiong MD @ 03/25/2024 9:38:00 AM (Electronically Signed)
== END 2024-03-25 07:32 | disposition home or self-care (01) ==
LOC: MAMMO 07:32
PROVIDERS: PCP Family Medicine; Visit Provider Surgery
DX: N64.4 Mastodynia (principal); N60.99 Unspecified benign mammary dysplasia of unspecified breast
CPT/HCPCS: 77066; G0279

== ENCOUNTER 2024-09-14 15:17 | Outpatient (CLI) | payer BC, SELFPAY ==
--- NOTE | 2024-09-14 15:30 | CRLHL7_ITS ---
For Patients: As a result of the Century Cures Act, medical imaging exams and procedure reports are released immediately into your electronic medical record. You may view this report before your referring provider. If you have questions, please contact your health care provider. BILATERAL BREAST MRI WITHOUT AND WITH GADOLINIUM CLINICAL HISTORY: 63-year-old female elevated risk of breast cancer due to prior biopsy demonstrating atypical lobular hyperplasia. INDICATION FOR BREAST MRI: Screening breast MRI in this high-risk woman. COMPARISON STUDIES: Mammogram 03/25/2024, breast MRI 08/26/2023 and 06/11/2022. CONTRAST: 20 mL Dotarem IV. TECHNIQUE: The patient was positioned prone using a breast coil. Multiple imaging sequences were obtained using 1-1.5 mm thick slices with no gap. The image sequences include T2-weighted STIR in the axial plane, T1-weighted nonfat-saturated gradient echo in the axial plane, pre- and post-contrast T1-weighted FLASH 3D with fat suppression in the axial plane, and T1-weighted FLASH high resolution 3D with fat suppression in the sagittal plane. Image post-processing was performed on a [employer] workstation. Complex 3D rendering including maximum intensity projections (MIPS) and volumetric renderings were obtained to optimize visualization of the extent of pathology and relationship to the nipple, skin, and chest wall. This aids in determining feasibility of breast conservation surgery. Subtraction, multiplanar reconstruction, mean curve determination, and angiogenesis mapping were also performed. The study was technically adequate. FINDINGS: Amount of Fibroglandular Tissue: Scattered fibroglandular tissue. Breast Background Enhancement: Minimal RIGHT Breast: No suspicious areas of enhancement. LEFT Breast: No suspicious areas of enhancement. Lymph Nodes: No adenopathy. IMPRESSIONS AND RECOMMENDATIONS: Negative, there is no MRI evidence of malignancy. Continue annual screening mammography. Whether to continue annual supplemental screening with breast MRI should be based on clinical factors. BI-RADS Category 1: Negative Dictated by Neena Patel MD @ 09/15/2024 10:20:09 AM/CRL:matilde JR/Dictated by: Neena Patel MD @ 09/15/2024 10:20:00 AM RYAN/Dictated by: Neena Patel MD @ 09/15/2024 10:20:00 AM (Electronically Signed)
== END 2024-09-14 15:18 | disposition home or self-care (01) ==
LOC: MRI 15:18
PROVIDERS: PCP Family Medicine; Visit Provider Surgery
DX: Z12.39 Encounter for other screening for malignant neoplasm of breast (principal); N60.99 Unspecified benign mammary dysplasia of unspecified breast; Z91.89 Other specified personal risk factors, not elsewhere classified
CPT/HCPCS: 77049; A9575

== ENCOUNTER 2024-12-24 06:31 | Outpatient (CLI) | payer MEDICARE, SELFPAY ==
--- NOTE | 2024-12-24 07:54 | P.ANES_ITS ---
Anesthesia Charges Start Date/Time Anesthesia Start Date: 12/24/24 Anesthesia Start Time: 07:15 Stop Date/Time Anesthesia Stop Date: 12/24/24 Anesthesia Stop Time: 07:48 Coding CPT Codes CPT Codes: ANES LWR INTST SCR COLSC - 39328 ([id number]) QK - LABEL MAKER 2-4 CNCRNT ANES PROC, QX - WINDOWS INFRASTRUCTURE ENGINEER SVC W/ MED DIRECTION, P3 - PATIENT W/SEVERE SYS DISEASE
--- NOTE | 2024-12-24 07:54 | W.ANESCHARGE ---
Anesthesia Charges Start Date/Time Anesthesia Start Date: 12/24/24 Anesthesia Start Time: 07:15 Stop Date/Time Anesthesia Stop Date: 12/24/24 Anesthesia Stop Time: 07:48 Coding CPT Codes CPT Codes: ANES LWR INTST SCR COLSC - 04831 ([id number]) QK - CLERICAL STOCK INSPECTOR 2-4 CNCRNT ANES PROC, QX - BOAT GARNISHER SVC W/ MED DIRECTION, P3 - PATIENT W/SEVERE SYS DISEASE
--- NOTE | 2024-12-24 09:19 | P.ANES_ITS ---
Anesthesia Charges Start Date/Time Anesthesia Start Date: 12/24/24 Anesthesia Start Time: 07:15 Stop Date/Time Anesthesia Stop Date: 12/24/24 Anesthesia Stop Time: 07:48 Coding CPT Codes CPT Codes: ANES LWR INTST SCR COLSC - 24203 ([id number]) P3 - PATIENT W/SEVERE SYS DISEASE, QK - SUPERIOR COURT JUDGE 2-4 CNCRNT ANES PROC
--- NOTE | 2024-12-24 09:19 | W.ANESCHARGE ---
Anesthesia Charges Start Date/Time Anesthesia Start Date: 12/24/24 Anesthesia Start Time: 07:15 Stop Date/Time Anesthesia Stop Date: 12/24/24 Anesthesia Stop Time: 07:48 Coding CPT Codes CPT Codes: ANES LWR INTST SCR COLSC - 25562 ([id number]) P3 - PATIENT W/SEVERE SYS DISEASE, QK - COLLECTION DEVELOPMENT LIBRARIAN 2-4 CNCRNT ANES PROC
== END 2024-12-24 06:32 | disposition home or self-care (01) ==
LOC: OP CLINIC 06:31
PROVIDERS: PCP Family Medicine; Visit Provider Surgery
DX: Z12.11 Encounter for screening for malignant neoplasm of colon (principal); Z86.0100 Personal history of colon polyps, unspecified
CPT/HCPCS: 00812; 45378; J2704

== ENCOUNTER 2025-02-04 08:48 | Outpatient (CLI) | payer MEDICARE, SELFPAY | END 2025-02-04 08:49 | disposition home or self-care (01) | PROVIDERS: PCP Family Medicine; Visit Provider Family Medicine | DX: E11.9 Type 2 diabetes mellitus without complications (principal); E78.2 Mixed hyperlipidemia; I10 Essential (primary) hypertension | CPT/HCPCS: 80048; 80061; 82043; 82570; 84460 ==

== ENCOUNTER 2025-03-17 14:58 | Outpatient (CLI) | payer MEDICARE, SELFPAY ==
--- NOTE | 2025-03-17 15:20 | CRLHL7_ITS ---
For Patients: As a result of the Century Cures Act, medical imaging exams and procedure reports are released immediately into your electronic medical record. You may view this report before your referring provider. If you have questions, please contact your health care provider. INDICATION: BILATERAL SCREENING MAMMOGRAM, ASYMPTOMATIC 64 Y/O FEMALE COMPARISON: 09/14/2024, 03/25/2023, 03/12/2023 TECHNIQUE: Digital mammogram in CC and MLO projections including computer-aided detection (CAD) and tomosynthesis. BREAST COMPOSITION: There are scattered areas of fibroglandular density. FINDINGS: No suspicious findings. ASSESSMENT: BI-RADS 1 Negative RECOMMENDATION: Annual screening mammogram. A lay language report of this examination will be provided to the patient. Dictated by: Vu Xiong MD @ 03/18/2025 08:56:38 (Electronically Signed)
== END 2025-03-17 14:59 | disposition home or self-care (01) ==
LOC: MAMMO 14:59
PROVIDERS: PCP Family Medicine; Visit Provider Surgery
DX: Z12.31 Encounter for screening mammogram for malignant neoplasm of breast (principal)
CPT/HCPCS: 77063; 77067